=== PATIENT | male | born 1995 | race Two or more races ===

== ENCOUNTER 2020-12-10 18:05 | Emergency (ER) | payer OTHER ==
[~2020-12-10] VITALS: Ht 185.4 cm; Wt 70.0 kg
--- NOTE | 2020-12-10 18:27 | NUR ---
PT DORA, EMS REPORTS PT TOOK ACID 6 MONTHS AGO AND HAS BEEN EXPERIENCING AUDITORY/VISUAL HALLUCINATIONS AND INTERMITTENT BREAKS WITH REALITY. PT DENIES ANY PMH, ADMITS TO CANNABIS USE TODAY. PT A&O, RESPS EVEN AND UNLABORED, PRESENTS ANXIOUS AND PARANOID. FOLLOWS COMMANDS APPROPRIATELY. ERP AT BEDSIDE FOR EVAL.
[2020-12-10 18:53] LABS: BASOPHILS % (AUTO) 1 % (0-1); EOSINOPHILS % (AUTO) 0 % (1-7); LYMPHOCYTES % (AUTO) 25 % (22-44); MEAN CORPUSCULAR HEMOGLOBIN 33.1 pg (27.5-34.5); MEAN CORPUSCULAR HGB CONC 34.1 g/dL (33.2-36.2); MEAN PLATELET VOLUME 7.8 fL (7.4-10.4); MONOCYTES % (AUTO) 11 % (2-9); NEUTROPHILS % (AUTO) 64 % (42-75); PLATELET COUNT 263 x10^3/uL (130-400); RED CELL DISTRIBUTION WIDTH 13.6 % (9.4-14.8)
[2020-12-10 18:55] LABS: MD NO
[2020-12-10 18:57] LABS: ALANINE AMINOTRANSFERASE 31 U/L (12-78); ANION GAP 7 mmol/L (5-15); CALCIUM 8.8 mg/dL (8.5-10.1); CHLORIDE 104 mmol/L (98-107); CREATININE 0.85 mg/dL (0.7-1.3)
[2020-12-10] MEDS ORDERED: OLANZAPINE ODT 10MG PO STA (19:02)
[2020-12-10 19:07] LABS: ALKALINE PHOSPHATASE 67 U/L (45-117); BILIRUBIN,TOTAL 0.5 mg/dL (0.2-1.0); SALICYLATE LEVEL 1.8 mg/dL (2.8-20.0); TOTAL PROTEIN 7.3 g/dL (6.4-8.2)
--- NOTE | 2020-12-10 19:08 | NUR ---
REPORT GIVEN TO RAGHU SERNA
--- NOTE | 2020-12-10 19:10 | NUR ---
PT CONNECTED TO MONITORS. VSS. PT IN NAD PT GIVEN WARM BLANKET. NO ADDITIONAL NEEDS AT THIS TIME.
--- NOTE | 2020-12-10 19:10 | NUR ---
RECEIEVED REPORT FROM GERARDO SERNA
[2020-12-10] MEDS ORDERED: OLANZAPINE 10 MG TABLET ONE (19:26)
--- NOTE | 2020-12-10 19:34 | NUR ---
PT RESTING IN BED WATCHING TV. CONNECTED TO MONITORS. VSS. PT IN NAD. TOLERATED MEDICATION WELL. BED IN LOW POSITION. CALL LIGHT WITHIN REACH. RAILS ENGAGED. SITTER IN VIEW FOR MONITORING. SAFETY GAITS DOWN.
--- NOTE | 2020-12-10 19:59 | NUR ---
PT STATED THAT HE COULD NOT PEE. GAVE PT WATER TO HELP.
[2020-12-10] MEDS ORDERED: OLANZAPINE ODT 10MG PO ONE (20:00)
[2020-12-10 20:28] VITALS: BP 101/42
== END 2020-12-10 20:32 | disposition home or self-care (01) ==
LOC: ED 20:10
DX: F10.19 Alcohol abuse with unspecified alcohol-induced disorder (principal); Y90.0 Blood alcohol level of less than 20 mg/100 ml; R00.0 Tachycardia, unspecified; Z72.9 Problem related to lifestyle, unspecified; F17.210 Nicotine dependence, cigarettes, uncomplicated
CPT/HCPCS: 36415; 80053; 80299; 80320; 80329; 84443; 85025; 93005; 99284; 99406; G0480